=== PATIENT | male | born 2000 | race Caucasian/White ===

== ENCOUNTER 2019-03-28 08:28 | Emergency (ER) | payer OTHER ==
[~2019-03-28] VITALS: Ht 195.6 cm; Wt 86.2 kg
--- NOTE | 2019-03-28 08:55 | NUR ---
Pt's friend came to nurse's station and reported pt is now vomiting. Dr. Gomez notified.
[2019-03-28] MEDS ORDERED: NS IV 1000 ML 1,000 ML IV ONE (08:57)
[2019-03-28] MEDS ORDERED: KETOROLAC 30 MG/ML VIAL IVP ONE (09:00)
[2019-03-28] MEDS ORDERED: ONDANSETRON 4 MG/2 ML (SDV) Z0FRAN IVP ONE ×2 (09:00)
[2019-03-28 09:06] LABS: BASOPHILS % (AUTO) 0 % (0-10); EOSINOPHILS # (AUTO) 0.2 10^3/uL (0.0-0.3); EOSINOPHILS % (AUTO) 3 % (0-10); HEMATOCRIT 43 % (40-54); HEMOGLOBIN 14.9 G/DL (13.3-17.7); LYMPHOCYTES # (AUTO) 2.8 X 10^3 (1.0-4.0); LYMPHOCYTES % (AUTO) 33 % (12-44); MEAN CORPUSCULAR HEMOGLOBIN 30 PG (25-34); MEAN CORPUSCULAR HGB CONC 35 G/DL (32-36); MEAN CORPUSCULAR VOLUME 85 FL (80-99); MEAN PLATELET VOLUME 9.5 FL (7.4-10.4); MONOCYTES # (AUTO) 0.7 X 10^3 (0.0-1.0); MONOCYTES % (AUTO) 9 % (0-12); NEUTROPHILS # (AUTO) 4.6 X 10^3 (1.8-7.8); NEUTROPHILS % (AUTO) 55 % (42-75); PLATELET COUNT 298 10^3/uL (130-400); RED CELL DISTRIBUTION WIDTH 12.5 % (10.0-14.5); WHITE BLOOD COUNT 8.3 10^3/uL (4.3-11.0)
[2019-03-28 09:19] LABS: ALANINE AMINOTRANSFERASE 10 U/L (0-55); ALBUMIN 4.1 GM/DL (3.2-4.5); ALKALINE PHOSPHATASE 60 U/L (40-136); BILIRUBIN,TOTAL 1.1 MG/DL (0.1-1.0); BUN/CREATININE RATIO 11; CALCIUM 9.4 MG/DL (8.5-10.1); CARBON DIOXIDE 23 MMOL/L (21-32); CHLORIDE 106 MMOL/L (98-107); CREATININE SERUM 0.89 MG/DL (0.60-1.30); GFR ESTIMATED > 60; GLUCOSE 126 MG/DL (70-105); POTASSIUM 3.5 MMOL/L (3.6-5.0); SODIUM 141 MMOL/L (135-145); TOTAL PROTEIN 6.7 GM/DL (6.4-8.2)
--- NOTE | 2019-03-28 09:27 | ED GU-Female ---
General Chief Complaint: - Urinary Stated Complaint: ABD PAIN Nursing Triage Note: Pt reports "immense" abdominal pain that began upon waking this morning. Pt reports feeling sensation of having to urinate but reports being unable to. Pt reports not knowing when last urination was. Pt reports last BM yesterday. Nursing Sepsis Screen: No Definite Risk (LIONEL GUDINO) History of Present Illness Date Seen by Provider: Mar 28, 2019 Time Seen by Provider: 09:15 Initial Comments A 19 yo Male presents to the ER complaining of pain during urination. The pain started this morning when trying to urinate. Before the pain, he has had normal bowel and bladder movements. He states the pain is not constant and he stated the pain is 8/10. He does not have a history of kidney stones. He is currently at [facility]. The patient did vomit after leaving the exam room. (LIONEL GUDINO) Allergies and Home Medications Allergies Coded Allergies: No Known Drug Allergies (Unverified , 03/28/19) Review of Systems Review of Systems Constitutional: No chills, No fever EENTM: No hearing loss, No blurred vision, No vision loss Respiratory: No dyspnea on exertion, No short of breath Cardiovascular: No chest pain Gastrointestinal: No diarrhea Genitourinary: denies burning, denies discharge (LIONEL GUDINO) Past Emxmmai-Rdwyyd-Gudcbg Hx Patient Social History Alcohol Use: Denies Use Recreational Drug Use: No Smoking Status: Never a Smoker 2nd Hand Smoke Exposure: No Recent Foreign Travel: No Contact w/Someone Who Travel: No Recent Infectious Disease Expo: No Recent Hopitalizations: No Physical Abuse: No Sexual Abuse: No (LIONEL GUDINO) Past Medical History Surgeries: No Respiratory: No Cardiac: No Neurological: No Genitourinary: No Gastrointestinal: No Musculoskeletal: No Endocrine: No HEENT: No Cancer: No Psychosocial: Yes ADD/ADHD Integumentary: No Blood Disorders: No (LIONEL GUDINO) Physical Exam Vital Signs Vital Signs - First Documented 03/28/19 08:35 Temp 97.4 Pulse 58 Resp 11 B/P (MAP) 131/101 (111) Pulse Ox 97 O2 Delivery Room Air (MICHAELLE PINTO MD) Vital Signs Capillary Refill : Less Than 3 Seconds (LIONEL GUDINO) Height, Weight, BMI Height: 6'5.00" Weight: 190lbs. oz. 86.312270cr; BMI Method:Stated General Appearance: mild distress, other (A&Ox3) Cardiovascular: normal peripheral pulses, regular rate, rhythm, no edema, no JVD, no murmur Respiratory: chest non-tender, lungs clear, normal breath sounds, no respiratory distress, no accessory muscle use Gastrointestinal: normal bowel sounds, no organomegaly, no pulsatile mass (LIONEL GUDINO) Progress/Results/Core Measures Suspected Sepsis Recent Fever Within 48 Hours: No Infection Criteria Present: None New/Unexplained Altered Menta: No Sepsis Screen: No Definite Risk SIRS Temperature:97.4 Pulse: 58 Respiratory Rate: 11 Laboratory Tests 03/28/19 08:45: White Blood Count 8.3 Blood Pressure 131 /101 Mean: 111 Laboratory Tests 03/28/19 08:45: Creatinine 0.89, Platelet Count 298, Total Bilirubin 1.1H (LIONEL GUDINO) Results/Orders Lab Results Laboratory Tests Test 03/28/19 08:45 03/28/19 09:55 Range/Units White Blood Count 8.3 4.3-11.0 10^3/uL Red Blood Count 5.04 4.35-5.85 10^6/uL Hemoglobin 14.9 13.3-17.7 G/DL Hematocrit 43 40-54 % Mean Corpuscular Volume 85 80-99 FL Mean Corpuscular Hemoglobin 30 25-34 PG Mean Corpuscular Hemoglobin Concent 35 32-36 G/DL Red Cell Distribution Width 12.5 10.0-14.5 % Platelet Count 298 130-400 10^3/uL Mean Platelet Volume 9.5 7.4-10.4 FL Neutrophils (%) (Auto) 55 42-75 % Lymphocytes (%) (Auto) 33 12-44 % Monocytes (%) (Auto) 9 0-12 % Eosinophils (%) (Auto) 3 0-10 % Basophils (%) (Auto) 0 0-10 % Neutrophils # (Auto) 4.6 1.8-7.8 X 10^3 Lymphocytes # (Auto) 2.8 1.0-4.0 X 10^3 Monocytes # (Auto) 0.7 0.0-1.0 X 10^3 Eosinophils # (Auto) 0.2 0.0-0.3 10^3/uL Basophils # (Auto) 0.0 0.0-0.1 10^3/uL Sodium Level 141 135-145 MMOL/L Potassium Level 3.5 L 3.6-5.0 MMOL/L Chloride Level 106 98-107 MMOL/L Carbon Dioxide Level 23 21-32 MMOL/L Anion Gap 12 5-14 MMOL/L Blood Urea Nitrogen 10 7-18 MG/DL Creatinine 0.89 0.60-1.30 MG/DL Estimat Glomerular Filtration Rate > 60 BUN/Creatinine Ratio 11 Glucose Level 126 H 70-105 MG/DL Calcium Level 9.4 8.5-10.1 MG/DL Corrected Calcium 9.3 8.5-10.1 MG/DL Total Bilirubin 1.1 H 0.1-1.0 MG/DL Aspartate Amino Transf (AST/SGOT) 13 5-34 U/L Alanine Aminotransferase (ALT/SGPT) 10 0-55 U/L Alkaline Phosphatase 60 40-136 U/L Total Protein 6.7 6.4-8.2 GM/DL Albumin 4.1 3.2-4.5 GM/DL Urine Color YELLOW Urine Clarity CLEAR Urine pH 6 5-9 Urine Specific [place] 1.020 1.016-1.022 Urine Protein 1+ H NEGATIVE Urine Glucose (UA) NEGATIVE NEGATIVE Urine Ketones 1+ H NEGATIVE Urine Nitrite NEGATIVE NEGATIVE Urine Bilirubin NEGATIVE NEGATIVE Urine Urobilinogen NORMAL NORMAL MG/DL Urine Leukocyte Esterase NEGATIVE NEGATIVE Urine RBC (Auto) 4+ H NEGATIVE Urine RBC 30-50 /HPF Urine WBC NONE /HPF Urine Squamous Epithelial Cells NONE /HPF Urine Crystals PRESENT H /LPF Urine Amorphous Sediment FEW SIRI URATES H /LPF Urine Bacteria NEGATIVE /HPF Urine Casts NONE /LPF Urine Mucus MODERATE H /LPF Urine Culture Indicated NO (MICHAELLE PINTO MD) My Orders Orders - MICHAELLE PINTO MD Ua Culture If Indicated (03/28/19 08:51) Bladder Scan (03/28/19 08:51) Ed Iv/Invasive Line Start (03/28/19 08:57) Cbc With Automated Diff (03/28/19 08:57) Comprehensive Metabolic Panel (03/28/19 08:57) Ns Iv 1000 Ml (Sodium Chloride 0.9%) (03/28/19 08:57) Ondansetron Injection (Zofran Injectio (03/28/19 09:00) Ketorolac Injection (Toradol Injection) (03/28/19 09:00) Ondansetron Injection (Zofran Injectio (03/28/19 09:00) Ct Abd/Pelvis Wo(Kidney Stone) (03/28/19 10:24) (MICHAELLE PINTO MD) Medications Given in ED Current Medications Medications Dose Ordered Sig/Jennifer Route Start Time Stop Time Status Last Admin Dose Admin Ketorolac Tromethamine 15 mg ONCE ONCE IVP 03/28/19 09:00 03/28/19 09:01 DC 03/28/19 09:13 15 MG Ondansetron HCl 8 mg ONCE ONCE IVP 03/28/19 09:00 03/28/19 09:01 DC 03/28/19 09:11 8 MG Sodium Chloride 1,000 ml @ 0 mls/hr Q0M ONCE IV 03/28/19 08:57 03/28/19 09:01 DC 03/28/19 09:11 1,000 MLS/HR (MICHAELLE PINTO MD) Vital Signs/I&O 03/28/19 08:35 Temp 97.4 Pulse 58 Resp 11 B/P (MAP) 131/101 (111) Pulse Ox 97 O2 Delivery Room Air (MICHAELLE PINTO MD) Vital Signs/I&O Capillary Refill : Less Than 3 Seconds (LIONEL GUDINO) Blood Pressure Mean: 111 Diagnostic Imaging Diagonstic Imaging: CT Plain Films/CT/US/NM/MRI: abdomen, pelvis Comments CT scan reviewed by me and report reviewed. See report below: NAME: KOBY COLEMAN [facility] REC#: [id number] PT STATUS: REG ER : 2000 PHYSICIAN: MICHAELLE PINTO MD ADMIT DATE: 03/28/19/ER Signed Date of Exam:03/28/19 CT ABD/PELVIS WO(KIDNEY STONE) PROCEDURE: CT urinary tract, rule out kidney stone. TECHNIQUE: Multiple contiguous axial images were obtained through the abdomen and pelvis without the use of intravenous contrast. Auto Exposure Controls were utilized during the CT exam to meet ALARA standards for radiation dose reduction. INDICATION: Abdominal pain inferior to the navel. Dysuria. EXAMINATION: CT of the pelvis without contrast dated 03/28/2019. COMPARISON: None. FINDINGS: Visualized lung bases appear clear. Osseous structures demonstrate no acute abnormalities. Visualized abdominal viscera limited due to lack of contrast. No gross abnormality is appreciated. The appendix is seen its tip is near the right lobe of the liver and is unremarkable. No surrounding inflammatory change is appreciated. No nephrolithiasis is seen on either side. The right renal pelvis slightly prominent compared to the left however stefany hydronephrosis is not seen. Portions of the right ureter slightly dilated. Urinary bladder wall is thickened perhaps due to underdistention versus cystitis. Correlate with symptoms. On image #103 there is a tiny punctate hyperdensity within the posterior aspect of the bladder perhaps a recently passed stone or a tiny punctate stone at the UVJ. No free fluid or air seen in the abdomen or pelvis no inflammatory change about the bowel loops IMPRESSION: 1. Suspected punctate recently passed or passing stone on the right in the right aspect of the pelvis, see above discussion. 2. Minimal prominence of the right renal pelvis perhaps due to the recently passed stone, no stefany hydronephrosis. 3. Wall thickening urinary bladder possibly due to cystitis versus underdistention correlate with symptoms. Remaining findings as above. Dictated by: Dictated on workstation # [id number] Dict: 03/28/19 1047 Trans: 03/28/19 1126 [facility] [id number] Interpreted by: MARY GAY MD Electronically signed by: MARY GAY MD 03/28/19 1126 (MICHAELLE PINTO MD) Departure Impression Primary Impression: Right ureteral stone Additional Impressions: Lower abdominal pain Nausea and vomiting Qualified Codes: R11.2 - Nausea with vomiting, unspecified Disposition: 01 HOME, SELF-CARE Condition: Improved Departure-Patient Inst. Decision time for Depature: 12:07 (MICHAELLE PINTO MD) Referrals: NO,LOCAL PHYSICIAN (PCP/Family) Primary Care Physician Patient Instructions: Kidney Stone Diet, Kidney Stones in Adults Add. Discharge Instructions: Drink plenty of clear liquids. For pain take ibuprofen up to 600 mg every 6 hours as needed. Add Tylenol (acetaminophen) up to 1000 mg every 6 hours as needed for additional pain relief. Strain your urine and bring any stones collected to your primary care provider in follow-up. Please follow-up with your primary care provider next week. You may treat any further nausea and vomiting with Zofran (ondansetron) as prescribed. Return to the ER if you have worsening symptoms. All discharge instructions reviewed with patient and/or family. Voiced understanding. Scripts Ondansetron (Ondansetron Odt) 4 Mg Tab.rapdis 4 MG SL Q4H PRN for NAUSEA/VOMITING, #10 TAB Prov: MICHAELLE PINTO MD 03/28/19 LIONEL GUDINO [facility] Mar 28, 2019 09:27 MICHAELLE PINTO MD Mar 28, 2019 11:54
[2019-03-28 10:13] LABS: BACTERIA,URINE NEGATIVE /HPF; BILIRUBIN,URINE NEGATIVE (NEGATIVE); CLARITY,URINE CLEAR; COLOR,URINE YELLOW; GLUCOSE, URINE (UA) NEGATIVE (NEGATIVE); KETONES,URINE 1+ (NEGATIVE); LEUKOCYTE ESTERASE ,URINE NEGATIVE (NEGATIVE); NITRITE,URINE NEGATIVE (NEGATIVE); PH,URINE 6 (5-9); PROTEIN,URINE 1+ (NEGATIVE); RBC,URINE 30-50 /HPF; UROBILINOGEN,URINE NORMAL (NORMAL)
[2019-03-28 10:14] LABS: AMORPHOUS SEDIMENT,UR FEW AMOR URATES /LPF
--- NOTE | 2019-03-28 11:03 | Diagnostic Imaging Report ---
PROCEDURE: CT urinary tract, rule out kidney stone. TECHNIQUE: Multiple contiguous axial images were obtained through the abdomen and pelvis without the use of intravenous contrast. Auto Exposure Controls were utilized during the CT exam to meet ALARA standards for radiation dose reduction. INDICATION: Abdominal pain inferior to the navel. Dysuria. EXAMINATION: CT of the pelvis without contrast dated 03/28/2019. COMPARISON: None. FINDINGS: Visualized lung bases appear clear. Osseous structures demonstrate no acute abnormalities. Visualized abdominal viscera limited due to lack of contrast. No gross abnormality is appreciated. The appendix is seen its tip is near the right lobe of the liver and is unremarkable. No surrounding inflammatory change is appreciated. No nephrolithiasis is seen on either side. The right renal pelvis slightly prominent compared to the left however stefany hydronephrosis is not seen. Portions of the right ureter slightly dilated. Urinary bladder wall is thickened perhaps due to underdistention versus cystitis. Correlate with symptoms. On image #103 there is a tiny punctate hyperdensity within the posterior aspect of the bladder perhaps a recently passed stone or a tiny punctate stone at the UVJ. No free fluid or air seen in the abdomen or pelvis no inflammatory change about the bowel loops IMPRESSION: 1. Suspected punctate recently passed or passing stone on the right in the right aspect of the pelvis, see above discussion. 2. Minimal prominence of the right renal pelvis perhaps due to the recently passed stone, no stefany hydronephrosis. 3. Wall thickening urinary bladder possibly due to cystitis versus underdistention correlate with symptoms. Remaining findings as above. Dictated by: Dictated on workstation # [id number]
[2019-03-28] MEDS ORDERED: ONDA4TAB11 SL (12:18)
[2019-03-28 12:27] VITALS: BP 110/65
== END 2019-03-28 12:27 | disposition home or self-care (01) ==
LOC: ER 08:30
DX: N20.1 Calculus of ureter (principal); R11.2 Nausea with vomiting, unspecified; F90.9 Attention-deficit hyperactivity disorder, unspecified type
CPT/HCPCS: 36415; 74176; 80053; 81000; 85025